=== PATIENT | female | born 1990 | race African-American/Black ===

== ENCOUNTER 2016-09-17 11:06 | Emergency (ER) | payer OTHER ==
[~2016-09-17] VITALS: Ht 160 cm; Wt 83.5 kg
[~2016-09-17 11:06] MED LIST: IBUP-232 PO; PROM25SU8 PO; TRAM50 PO; Z.0.BCPILL PO
[2016-09-17 11:14] VITALS: BP 128/88; PULSE 84; RESP 14; TEMP 98.7; O2SAT 100
[2016-09-17] MEDS ORDERED: BUSP10TA PO (11:32)
--- NOTE | 2016-09-17 11:40 | PD ---
HPI Chief Complaint: Medical Clearance Time Seen by Provider: 11:37 Travel History International Travel<30 days: No Contact w/Intl Traveler<30days: No Traveled to known affect area: No History of Present Illness HPI Patient is a 25-year-old female who presented to the emergency after near syncopal episode at work today. Patient states she was at work when she felt dizzy, clammy, lightheaded and hot. She states that she felt like she was going to pass out. She reports palpitations. She states that she's had a history of the same thing happening several months ago. She denies any chest pain, shortness of breath, abdominal pain. She does have a dull headache, stating that this is similar to a normal headache for her. She denies any drug use, tobacco use, oral contraceptives. Patient states she's followed by a primary doctor at [place]. She reports being evaluated by a metrology engineer for palpitations in the past. PFSH Past Medical History Anxiety: Yes Heart Rhythm Problems: Yes (palpitations) Diminished Hearing: No Headaches: Yes Influenza Vaccination: No ?: Not LMP: Ending now Past Surgical History Surgical History: No Previous Surgery Social History Alcohol Use: No Tobacco Use: No Substance Use: No Allergies-Medications (Allergen,Severity, Reaction): Coded Allergies: Dilaudid (Verified Allergy, Severe, TONGUE SWELLING, 09/17/16) Penicillin (Verified Allergy, Severe, Can't breathe, 09/17/16) Cipro (Verified Allergy, Intermediate, TONGUE SWELLING, 09/17/16) Reported Meds & Prescriptions Reported Meds & Active Scripts Active Reported Buspirone (Buspirone HCl) 10 Mg Tab 10 Mg PO HS Review of Systems Except as stated in HPI: all other systems reviewed are Neg HENT: Positive: Headaches Physical Exam Narrative GENERAL: Developed, well nourished, alert female. Resting comfortably in no acute distress. SKIN: Warm and dry. HEAD: Atraumatic. Normocephalic. EYES: Pupils equal and round. No scleral icterus. No injection or drainage. ENT: No nasal bleeding or discharge. Mucous membranes pink and moist. NECK: Trachea midline. No JVD. CARDIOVASCULAR: Regular rate and rhythm. No murmur appreciated. RESPIRATORY: No accessory muscle use. Clear to auscultation. Breath sounds equal bilaterally. GASTROINTESTINAL: Abdomen soft, non-tender, nondistended. Hepatic and splenic margins not palpable. MUSCULOSKELETAL: No obvious deformities. No clubbing. No cyanosis. No edema. NEUROLOGICAL: Awake and alert. No obvious cranial nerve deficits. Motor grossly within normal limits. Normal speech. PSYCHIATRIC: Appropriate mood and affect; insight and judgment normal. Data Data Last Documented VS Vital Signs Date Time Temp Pulse Resp B/P Pulse Ox O2 Delivery O2 Flow Rate FiO2 09/17/16 11:14 98.7 84 14 128/88 100 Orders Electrocardiogram (09/17/16 ) Comprehensive Metabolic Panel (09/17/16 11:32) Ed Urine Pregnancytest Poc (09/17/16 11:32) Complete Blood Count With Diff (09/17/16 11:32) Thyroid Stimulating Hormone (09/17/16 11:32) Labs Laboratory Tests Test 09/17/16 11:50 White Blood Count 6.5 TH/MM3 Red Blood Count 4.34 MIL/MM3 Hemoglobin 10.9 GM/DL Hematocrit 33.1 % Mean Corpuscular Volume 76.3 FL Mean Corpuscular Hemoglobin 25.0 PG Mean Corpuscular Hemoglobin 32.8 % Concent Red Cell Distribution Width 15.8 % Platelet Count 422 TH/MM3 Mean Platelet Volume 7.9 FL Neutrophils (%) (Auto) 61.0 % Lymphocytes (%) (Auto) 24.9 % Monocytes (%) (Auto) 6.7 % Eosinophils (%) (Auto) 2.7 % Basophils (%) (Auto) 4.7 % Neutrophils # (Auto) 4.0 TH/MM3 Lymphocytes # (Auto) 1.6 TH/MM3 Monocytes # (Auto) 0.4 TH/MM3 Eosinophils # (Auto) 0.2 TH/MM3 Basophils # (Auto) 0.3 TH/MM3 CBC Comment DIFF FINAL Differential Comment Sodium Level 141 MEQ/L Potassium Level 3.7 MEQ/L Chloride Level 109 MEQ/L Carbon Dioxide Level 22.0 MEQ/L Anion Gap 10 MEQ/L Blood Urea Nitrogen 10 MG/DL Creatinine 0.80 MG/DL Estimat Glomerular Filtration 107 ML/MIN Rate Random Glucose 77 MG/DL Calcium Level 8.4 MG/DL Total Bilirubin 0.3 MG/DL Aspartate Amino Transf 15 U/L (AST/SGOT) Alanine Aminotransferase 12 U/L (ALT/SGPT) Alkaline Phosphatase 69 U/L Total Protein 7.7 GM/DL Albumin 3.7 GM/DL Thyroid Stimulating Hormone 2.450 uIU/ML 3rd Gen [facility] Medical Decision Making Medical Screen Exam Complete: Yes Emergency Medical Condition: Yes Interpretation(s) Vital Signs Date Time Temp Pulse Resp B/P Pulse Ox O2 Delivery O2 Flow Rate FiO2 09/17/16 11:14 98.7 84 14 128/88 100 Differential Diagnosis Hypoglycemia versus near syncope versus cardiac arrhythmia versus thyroid disorder versus electrolyte abnormality versus other Narrative Course Patient is a 25-year-old female who presents emergency department after a near syncopal episode work this morning. She did not eat breakfast this morning. Physical examination is unremarkable, patient's vital signs are stable. EKG shows normal sinus rhythm with a rate of 77. Patient does have a history of palpitation assessment seen and evaluated by a metrology engineer in the past and has a primary doctor to follow-up with. CBC, chemistry, TSH ordered and pending. Urine is negative. CBC shows a mild anemia at 10.9 and 33.1. Chemistry reviewed and unremarkable, TSH is normal. Patient was discharged home, she is encouraged to eat regular meals, maintain adequate fluid hydration. She is encouraged follow-up with a metrology engineer and her primary doctor. She is encouraged return to emergency department for any new or worsening symptoms. Discussed exam findings and plan with my attending physician who is in agreement. Diagnosis Primary Impression: Near syncope Referrals: Industrial Waste Inspector 3 days Primary Care Physician 3 days Patient Instructions: General Instructions, Near Syncope (ED) Departure Forms: Tests/Procedures, Work Release Enter return to work date: Sep 18, 2016 Additional Instructions: Follow-up with her primary doctor and metrology engineer Maintain adequate fluid intake Eat regular meals Return to emergency department for any new or worsening symptoms Med/Other Pt SpecificInfo: No Change to Meds Disposition: 01 DISCHARGE HOME Condition: Stable Delia Paiz Brittany DUNHAM Sep 17, 2016 11:40
[2016-09-17 11:54] LABS: BASOPHIL # 0.3 TH/MM3 (0-0.2); BASOPHIL % 4.7 % (0.0-2.0); EOSINOPHIL # 0.2 TH/MM3 (0-0.4); EOSINOPHIL % 2.7 % (0.0-4.0); HEMATOCRIT 33.1 % (35.0-46.0); HEMO FLAGS DIFF FINAL; LYMPH % 24.9 % (9.0-44.0); LYMPHOCYTE # 1.6 TH/MM3 (1.0-4.8); MEAN CELL VOLUME 76.3 FL (80.0-100.0); MEAN CORPUSCULAR HGB CONC 32.8 % (32.0-36.0); MONO % 6.7 % (0.0-8.0); PLATELET COUNT 422 TH/MM3 (150-450); RED BLOOD COUNT 4.34 MIL/MM3 (4.00-5.30); RED CELL DISTRIBUTION WIDTH 15.8 % (11.6-17.2); WHITE BLOOD COUNT 6.5 TH/MM3 (4.0-11.0)
[2016-09-17 12:04] LABS: CHLORIDE 109 MEQ/L (98-107); POTASSIUM 3.7 MEQ/L (3.5-5.1); SODIUM (NA) 141 MEQ/L (136-145)
[2016-09-17 12:08] LABS: ANION GAP 10 MEQ/L (5-15); BLOOD UREA NITROGEN 10 MG/DL (7-18)
[2016-09-17 12:11] LABS: ALT (GPT) 12 U/L (10-53); AST (GOT) 15 U/L (15-37); GLOMERULAR FILTRATION RATE 107 ML/MIN (>89)
[2016-09-17 12:13] LABS: TOTAL BILIRUBIN ADULT 0.3 MG/DL (0.2-1.0)
[2016-09-17 12:14] LABS: ALKALINE PHOSPHATASE 69 U/L (45-117)
--- NOTE | 2016-09-18 17:04 | EKG ---
Date Performed: 09/17/2016 Time Performed: 11:51:34 PTAGE: 25 years EKG: Sinus rhythm Normal ECG NO PREVIOUS TRACING DOCTOR: Tommy Chaves Interpretating Date/Time 09/18/2016 17:00:17
== END 2016-09-17 12:53 | disposition home or self-care (01) ==
LOC: PHED 11:06
DX: R55 Syncope and collapse (principal); R00.2 Palpitations
CPT/HCPCS: 80053; 84443; 84703; 85025; 93005